=== PATIENT | female | born 1970 | race Caucasian/White ===

== ENCOUNTER 2024-05-29 15:42 | Emergency (ER) | payer BC ==
--- NOTE | 2024-05-29 16:58 | RAD REPORT ---
EXAM:Extremity Venous Uni Ltd HISTORY: TECHNIQUE: Sonographic evaluation right lower extremity performed.Grayscale, color and spectral lucina sis performed on all vessels COMPARISON: None. FINDINGS: Echogenic material consistent with acute thrombus is present within the right posterior tibial vein. The vein is noncompressible. Right common femoral, superficial femoral, greater saphenous, and popliteal veins are compressible an d demonstrate augmentation. Doppler demonstrates good flow. 4.5 x 1.8 x 3.2 cm Gotti's cyst cyst. IMPRESSION: Acute thrombus right posterior tibial vein 4.5 cm right Gotti's cyst
[2024-05-29 18:16] LABS: Absolute Basophils 0.1 K/uL (0-0.5); Absolute Eosinophils 0.3 K/uL (0-0.5); Absolute Lymphocytes (CBC) 2.2 K/uL (0.7-4.9); Absolute Monocytes 0.6 K/uL (0.1-1.3); Basophils % 1.1 % (0-1.3); Eosinophils % 3.2 % (0-4.4); Hematocrit 32.4 % (36.0-45.0); Hemoglobin 10.3 g/dL (12.0-15.0); Lymphocytes % 27.2 % (15.3-44.8); MCH 29.5 pg (27.0-35.0); MCHC 31.7 g/dL (32.0-36.0); MPV 8.5 fL (7.6-11.3); Monocytes % 7.5 % (3.3-12.3); Platelets 455 thou/uL (152-406); RBC Red Blood Cell Count 3.48 M/uL (3.86-4.86); Red Cell Distribution Width 14.7 % (12.1-15.2)
[2024-05-29 18:22] LABS: PTT, Activated Partial Thromb 29.8 SECONDS (24.3-36.9); Protime INR 1.07
[2024-05-29] MEDS ORDERED: FENTANYL CITR 100 MCG/2 ML ONE (18:34)
[2024-05-29 18:38] LABS: ALT/SGPT 16 U/L (13-56); AST/SGOT 15 U/L (15-37); Albumin 3.5 g/dL (3.4-5.0); Albumin/Globulin Ratio 0.9 (1.1-1.8); Alkaline Phosphatase 55 U/L (45-117); Anion Gap 8.4 mEq/L (5.0-15.0); BUN Blood Urea Nitrogen 28 mg/dL (7-18); Bicarbonate 24 mEq/L (21-32); Bilirubin Total 0.2 mg/dL (0.2-1.0); Globulin 3.9 g/dL (2.3-3.5); Glomerular Filtration Rate 85 ml/min (=/>90); Glucose Level 98 mg/dL (74-106); Potassium 4.4 mEq/L (3.5-5.1); Protein, Total 7.4 g/dL (6.4-8.2); Sodium Level 135 mEq/L (136-145)
[2024-05-29 18:39] LABS: Bilirubin Direct < 0.2 mg/dL (0-0.2)
--- NOTE | 2024-05-29 18:54 | EDPHYS ---
Physician Documentation [facility] Name: Melissa Benites Age: 54 yrs Sex: Female : 1970 Arrival Date: 05/29/2024 Time: 15:42 Bed 24 Private MD: ED Physician Aureliano Hammer HPI: 05/29 16:25 This 54 yrs old Female presents to ER via Wheelchair with complaints of Leg Swelling - cp right. 16:25 The patient presents with pain, that is acute, swelling, tenderness. The complaints cp affect the right lower leg. Context: the patient is able to ambulate, with moderate difficulty, Problem is a result from a previous injury: No. Onset: The symptoms/episode began/occurred 2 day(s) ago. 16:25 Associated signs and symptoms: Pertinent positives: calf tenderness, warmth, Pertinent cp negatives fever, numbness. Treatment prior to arrival includes: no previous treatment. Historical: - Allergies: 16:16 No Known Allergies; iw - PMHx: 16:16 OA treasure knee and hips; Hypothyroidism; Hypercholesterolemia; iw - PSHx: 16:16 Appendectomy; treasure knee; iw - Immunization history:: Adult Immunizations not up to date. - Infectious Disease History:: Denies. - Social history:: Smoking status: Patient denies any tobacco usage or history of. ROS: 16:30 MS/extremity: Positive for erythema, pain, swelling, tenderness, of the right lower cp leg, Negative for injury or acute deformity, paresthesias, 16:30 Constitutional: Negative for fever, cp 16:30 Respiratory: Negative for cough, shortness of breath, wheezing, 16:30 Neuro: Negative for altered mental status, headache, weakness, 16:30 All other systems are negative, Exam: 16:33 Constitutional: The patient appears in no acute distress, alert, awake, cp non-diaphoretic, non-toxic, well developed, well nourished, obese, uncomfortable, 16:33 Head/Face: Normocephalic, atraumatic. cp 16:33 Eyes: Periorbital structures: appear normal, Conjunctiva: normal, no exudate, no injection, Sclera: no appreciated abnormality, Lids and lashes: appear normal, bilaterally, 16:33 ENT: External ear(s): are unremarkable, Nose: is normal, Mouth: Lips: moist, Oral mucosa: moist, Posterior pharynx: Airway: no evidence of obstruction, patent, 16:33 Chest/axilla: Inspection: normal, 16:33 Cardiovascular: Rate: normal, Rhythm: regular, 16:33 Respiratory: the patient does not display signs of respiratory distress, Respirations: normal, no use of accessory muscles, no retractions, labored breathing, is not present, Breath sounds: are clear throughout, no decreased breath sounds, no stridor, no wheezing, 16:33 Abdomen/GI: Exam negative for discomfort, distension, guarding, Inspection: obese 16:33 Back: pain, is absent, 16:33 Musculoskeletal/extremity: Extremities: noted in the right lower leg: erythema, pain, swelling, tenderness, There is no evidence of decreased ROM, deformity, Perfusion: the extremity is normally perfused throughout, the right leg Sensation intact. 16:33 Neuro: Orientation: to person, place \T\ time. Mentation: is normal, 17:47 ECG was reviewed by the Attending Physician. Vital Signs: 16:15 BP 137 / 70; Pulse 78; Resp 19; Temp 98.3; Pulse Ox 98% on R/A; Weight 185.97 kg; iw Height 5 ft. 2 in. ; Pain 8/10; 19:00 BP 133 / 51; Pulse 78; Resp 16; Pulse Ox 100% on R/A; jb4 16:15 Body Mass Index 74.99 (185.97 kg, 157.48 cm) iw 16:15 Pain Scale: Adult iw MDM: 16:24 Patient medically screened. 18:53 Data reviewed: vital signs, nurses notes, lab test result(s), EKG, radiologic studies, cp plain films, ultrasound, and as a result, I will discharge patient. 18:53 I considered the following discharge prescriptions or medication management in the emergency department Medications were administered in the Emergency Department. See MAR. Counseling: I had a detailed discussion with the patient and/or guardian regarding the historical points, exam findings, and any diagnostic results supporting the discharge/admit diagnosis, lab results, radiology results, the need for outpatient follow up, a family practitioner, to return to the emergency department if symptoms worsen or persist or if there are any questions or concerns that arise at home. ED course: VSS. No signs of respiratory distress, pain improved with meds. Will discharge to home for continued monitoring. 05/29 16:47 Order name: Basic Metabolic Panel; Complete Time: 18:47 cp 05/29 18:48 Interpretation: Normal except: NA 135; BUN 28; GFR 85. cp 05/29 16:47 Order name: CBC with Diff; Complete Time: 18:47 cp 05/29 18:48 Interpretation: Normal except: RBC 3.48; HGB 10.3; HCT 32.4; MCHC 31.7; PLT 455. cp 05/29 16:47 Order name: LFT's; Complete Time: 18:47 cp 05/29 16:47 Order name: PT-INR; Complete Time: 18:47 cp 05/29 16:47 Order name: Ptt, Activated; Complete Time: 18:47 cp 05/29 16:12 Order name: US Extremity Venous Unilateral Ltd; Complete Time: 16:59 cp 05/29 17:00 Interpretation: Report reviewed. 05/29 16:47 Order name: EKG; Complete Time: 16:47 cp 05/29 16:47 Order name: Cardiac monitoring; Complete Time: 17:51 cp 05/29 16:47 Order name: EKG - Nurse/Tech; Complete Time: 17:51 cp 05/29 16:47 Order name: IV Saline Lock; Complete Time: 18:11 cp 05/29 16:47 Order name: Labs collected and sent; Complete Time: 18:11 cp 05/29 16:47 Order name: O2 Per Protocol; Complete Time: 17:50 cp 05/29 16:47 Order name: O2 Sat Monitoring; Complete Time: 17:50 cp EC:47 Rate is 78 beats/min. Rhythm is regular. CA interval is normal. QRS interval is normal. cp QT interval is normal. T waves are Inverted in lead aVR. Interpreted by me. Reviewed by me. Administered Medications: 18:45 Drug: fentaNYL (PF) IVP 50 mcg IVP once Route: IVP; Site: right forearm; jb4 19:34 Follow up: Response: No adverse reaction; Marked relief of symptoms jb4 19:34 Drug: Xarelto PO 20 mg PO once Route: PO; jb4 19:34 Follow up: Response: Medication administered at discharge. jb4 Disposition: 19:57 Co-signature as Attending Physician, Aureliano Hammer MD I reviewed the patient's care rn provided by the Advanced Practice Provider and agree with the diagnosis and treatment plan. Disposition Summary: 05/29/24 18:54 Discharge Ordered Notes: Location: Home cp Problem: new cp Symptoms: have improved cp Condition: Stable cp Diagnosis - Acute embolism and thrombosis of unspecified deep veins of right lower extremity cp Followup: cp - With: Private Physician - When: 1 week - Reason: Recheck today's complaints Discharge Instructions: - Discharge Summary Sheet cp - Deep Vein Thrombosis cp - Bleeding Precautions When on Anticoagulant Therapy, Adult cp Forms: - Medication Reconciliation Form cp - Antibiotic Education cp - Prescription Opioid Use cp - Patient Portal Instructions cp - Leadership Thank You Letter cp Prescriptions: - Tramadol 50 mg Oral Tablet - take 1 tablet ORAL route every 8 hours as needed; 12 tablet; Refills: 0, cp Product Selection Permitted - Xarelto 15 mg Oral tablet - take 1 tablet ORAL route 2 times per day for 21 days; 42 tablet; Refills: 0, cp Product Selection Permitted Signatures: Dispatcher [employer] Yohana Schultz RN RN iw Nieto, Roman, MD MD rn Page, Corey, PA PA cp Rudolph Sanchez RN RN jb4 Corrections: (The following items were deleted from the chart) 16:47 16:47 BASIC METABOLIC PANEL+C.LAB.BRZ ordered. EDMS EDMS 16:47 16:47 CBC+H.LAB.BRZ ordered. EDMS EDMS 16:47 16:47 HEPATIC FUNCTION+C.LAB.BRZ ordered. EDMS EDMS 16:47 16:47 PROTIME (+INR)+COAG.LAB.BRZ ordered. EDMS EDMS 16:47 16:47 PTT, ACTIVATED+COAG.LAB.BRZ ordered. EDMS EDMS
--- NOTE | 2024-05-29 18:54 | ER ---
Nurse's Notes [facility] Name: Melissa Benites Age: 54 yrs Sex: Female : 1970 Arrival Date: 05/29/2024 Time: 15:42 Bed 24 Private MD: Diagnosis: Acute embolism and thrombosis of unspecified deep veins of right lower extremity Presentation: 05/29 16:15 Chief complaint: Patient states: right leg swelling and pain started 2 days ago , no hx iw of DVT. Coronavirus screen: At this time, the client does not indicate any symptoms associated with coronavirus-19. Ebola Screen: No symptoms or risks identified at this time. Initial Sepsis Screen: Does the patient meet any 2 criteria? No. Patient's initial sepsis screen is negative. Does the patient have a suspected source of infection? No. Patient's initial sepsis screen is negative. Risk Assessment: Do you want to hurt yourself or someone else? Patient reports no desire to harm self or others. 16:15 Method Of Arrival: Wheelchair iw 16:15 Acuity: TONEY 3 iw Historical: - Allergies: 16:16 No Known Allergies; iw - PMHx: 16:16 OA treasure knee and hips; Hypothyroidism; Hypercholesterolemia; iw - PSHx: 16:16 Appendectomy; treasure knee; iw - Immunization history:: Adult Immunizations not up to date. - Infectious Disease History:: Denies. - Social history:: Smoking status: Patient denies any tobacco usage or history of. Screenin:00 [facility] ED Fall Risk Assessment (Adult) History of falling in the last 3 months, jb4 including since admission No falls in past 3 months (0 pts) Confusion or Disorientation No (0 pts) Intoxicated or Sedated No (0 pts) Impaired Gait Yes (1 pt) Mobility Assist Device Used Yes (1 pt) Altered Elimination No (0 pt) Score/Fall Risk Level 0 - 2 = Low Risk Oriented to surroundings, Maintained a safe environment. Abuse screen: Denies threats or abuse. Nutritional screening: No deficits noted. Tuberculosis screening: No symptoms or risk factors identified. Assessment: 19:34 General: Appears in no apparent distress. uncomfortable, Behavior is calm, cooperative, jb4 appropriate for age. Pain: Complains of pain in right leg Pain does not radiate. Pain currently is 10 out of 10 on a pain scale. Neuro: Level of Consciousness is awake, alert, obeys commands, Oriented to person, place, time, situation. Cardiovascular: Patient's skin is warm and dry. Respiratory: Airway is patent Respiratory effort is even, unlabored, Respiratory pattern is regular, symmetrical. GI: No signs and/or symptoms were reported involving the gastrointestinal system. : No signs and/or symptoms were reported regarding the genitourinary system. EENT: No signs and/or symptoms were reported regarding the EENT system. Derm: Skin is intact, Skin is pink, warm \T\ dry. Musculoskeletal: Circulation, motion, and sensation intact. Range of motion: intact in all extremities. Vital Signs: 16:15 BP 137 / 70; Pulse 78; Resp 19; Temp 98.3; Pulse Ox 98% on R/A; Weight 185.97 kg; iw Height 5 ft. 2 in. ; Pain 8/10; 19:00 BP 133 / 51; Pulse 78; Resp 16; Pulse Ox 100% on R/A; jb4 16:15 Body Mass Index 74.99 (185.97 kg, 157.48 cm) iw 16:15 Pain Scale: Adult iw ED Course: 15:46 Patient arrived in ED. ra3 15:51 Audi Adams PA is PHCP. cp 15:51 Aureliano Hammer MD is Attending Physician. cp 16:16 Triage completed. iw 16:17 Arm band placed on. iw 16:49 US Extremity Venous Unilateral Ltd In Process Unspecified. EDMS 18:10 Inserted saline lock: 20 gauge in right forearm, using aseptic technique. Blood jb4 collected. 18:11 PT-INR Sent. jb4 18:11 CBC with Diff Sent. jb4 18:11 LFT's Sent. jb4 18:11 Ptt, Activated Sent. jb4 19:00 Patient has correct armband on for positive identification. Bed in low position. Call jb4 light in reach. Side rails up X 1. Provided Education on: discharge instructions.. 19:00 No provider procedures requiring assistance completed. IV discontinued, intact, jb4 bleeding controlled, No redness/swelling at site. Pressure dressing applied. Administered Medications: 18:45 Drug: fentaNYL (PF) IVP 50 mcg IVP once Route: IVP; Site: right forearm; jb4 19:34 Follow up: Response: No adverse reaction; Marked relief of symptoms jb4 19:34 Drug: Xarelto PO 20 mg PO once Route: PO; jb4 19:34 Follow up: Response: Medication administered at discharge. jb4 Medication: 19:00 VIS not applicable for this client. jb4 Outcome: 18:54 Discharge ordered by . cp 19:37 Discharged to home via wheelchair, jb4 19:37 Condition: stable 19:37 Discharge instructions given to patient, Instructed on discharge instructions, follow up and referral plans. no drinking with medication, no driving heavy equipment, medication usage, Demonstrated understanding of instructions, follow-up care, medications, Prescriptions given X 2, 19:37 Patient left the ED. jb4 Signatures: Dispatcher [employer] EDMS Yohana Pina RN RN Audi Hinkle PA PA Rudolph Blakely RN RN jb4 Linda Langford ra3
[2024-05-29] MEDS ORDERED: RIVAROXABAN 20 MG TABLET PO ONE (19:25)
[2024-05-29 20:16] VITALS: TEMP 98.3
[2024-05-29 20:19] VITALS: BP 133/51; O2SAT 100
--- NOTE | 2024-05-31 13:02 | EKG ---
Test Date: 2024-05-29 Test Time: 17:39:07 Tray Line Supervisor: RAO MEASUREMENT RESULTS: Intervals: Rate: 78 OH: 152 QRSD: 92 QT: 394 QTc: 449 [place]: P: 65 OH: 152 QRS: 26 T: 61 INTERPRETIVE STATEMENTS: Normal sinus rhythm Normal ECG No previous ECG available for comparison Electronically Signed On 05-31-24 12:56:19 CDT by Yehuda Covarrubias
== END 2024-05-29 19:37 | disposition home or self-care (01) ==
LOC: ER 15:42
DX: I82.401 Acute embolism and thrombosis of unspecified deep veins of right lower extremity (principal)
CPT/HCPCS: 93005; 85025; 80048; 36415; 85610; 80076; 85730; 93971; 96374; 99284; J3010

== ENCOUNTER 2024-08-06 20:16 | Emergency (ER) | payer BC ==
--- NOTE | 2024-08-07 00:52 | RAD REPORT ---
EXAM DESCRIPTION: Chest Single View CLINICAL HISTORY: CHEST PAIN COMPARISON: None TECHNIQUE: Single AP view of the chest. FINDINGS: Lung volumes adequate. Cardiac silhouette is mildly enlarged. No pneumothorax. No large pleural effusion. Subtle patchy opacities in the right lower lobe. No acute bony finding. IMPRESSION: 1. Subtle patchy opacities in the right lower lobe, could represent atelectasis versus developing a typical infectious process. 2. Mildly enlarged cardiac silhouette. Electronically signed by: Lor Almodovar MD 08/06/2024 11:04 PM [facility] Z9 Due to temporary technical issues with the PACS/[employer] reporting system, reports are being davy d by the in-house radiologist without review as a courtesy to ensure prompt reporting the interpreting radiologist is fully responsible for the content of the report. Transcribed Date/Time: 08/07/2024 12:51 AM
[2024-08-07 02:30] LABS: Absolute Basophils 0.1 K/uL (0-0.5); Absolute Eosinophils 0.2 K/uL (0-0.5); Absolute Lymphocytes (CBC) 1.7 K/uL (0.7-4.9); Absolute Monocytes 0.5 K/uL (0.1-1.3); Absolute Neutrophil 4.5 K/uL (1.8-8.0); Basophils % 1.2 % (0-1.3); Eosinophils % 3.3 % (0-4.4); Hematocrit 13.9 % (36.0-45.0); Lymphocytes % 23.9 % (15.3-44.8); MCH 22.8 pg (27.0-35.0); MCHC 28.6 g/dL (32.0-36.0); MCV 79.8 fL (80-100); MPV 7.8 fL (7.6-11.3); Monocytes % 7.1 % (3.3-12.3); Neutrophils % 64.5 % (41.7-73.7); Nucleated RBC Absolute Count 0.5 (0-0); Nucleated Red Blood Cells % 6.8 % (0-0); Platelets 414 thou/uL (152-406); RBC Red Blood Cell Count 1.75 M/uL (3.86-4.86); Red Cell Distribution Width 22.7 % (12.1-15.2)
[2024-08-07 02:35] LABS: Anion Gap 8.4 mEq/L (5.0-15.0); Potassium 5.4 mEq/L (3.5-5.1); Troponin High Sensitivity 7.9 pg/mL (<58.9)
[2024-08-07 04:26] LABS: Anisocytosis 2+; Blood Morphology Comment NOTED (NOT SEEN); Hypochromasia 2+; Microcytosis 1+; Platelet Estimate ADEQ; Polychromasia 1+; White Blood Cell Scan OK (OK)
--- NOTE | 2024-08-07 05:04 | ER ---
Nurse's Notes [facility] Name: Melissa Benites Age: 54 yrs Sex: Female : 1970 Arrival Date: 08/06/2024 Time: 20:16 Bed 7 Private MD: Diagnosis: Anemia, unspecified;Melena Presentation: 08/06 21:04 Chief complaint: EMS states: SOB x2 weeks, chest pain starting today that radiates to tm6 left shoulder. Right now no CP. Since being in ER, has experienced some dizziness. Coronavirus screen: Client denies travel out of the [place] in the last 14 days. Ebola Screen: Patient negative for fever greater than or equal to 101.5 degrees Fahrenheit, and additional compatible Ebola Virus Disease symptoms Patient denies exposure to infectious person. Patient denies travel to an Ebola-affected area in the 21 days before illness onset. No symptoms or risks identified at this time. Initial Sepsis Screen: Does the patient meet any 2 criteria? No. Patient's initial sepsis screen is negative. Does the patient have a suspected source of infection? No. Patient's initial sepsis screen is negative. Risk Assessment: Do you want to hurt yourself or someone else? Patient reports no desire to harm self or others. Onset of symptoms was August 06, 2024 at 18:00. 21:04 Method Of Arrival: EMS: [facility] tm6 21:04 Acuity: TONEY 3 tm6 Triage Assessment: 21:06 General: Appears in no apparent distress. Behavior is calm, cooperative. Pain: Denies tm6 pain. Complains of pain in chest and left arm Pain currently is 0 out of 10 on a pain scale. EENT: No signs and/or symptoms were reported regarding the EENT system. Neuro: Level of Consciousness is awake, alert, obeys commands, Oriented to person, place, time, situation, Reports dizziness. Cardiovascular: Reports chest pain, shortness of breath, Patient's skin is warm and dry. Rhythm is sinus rhythm. Respiratory: Airway is patent Respiratory effort is even, unlabored, Respiratory pattern is regular, symmetrical. GI: Abdomen is obese. : No signs and/or symptoms were reported regarding the genitourinary system. Derm: No signs and/or symptoms reported regarding the dermatologic system. Musculoskeletal: No signs and/or symptoms reported regarding the musculoskeletal system. DIRECTOR [employer] SCIENCES: 08/07 06:47 LMP N/A - Post-menopause, Not vc1 Historical: - Allergies: 08/06 21:06 No Known Allergies; tm6 - PMHx: 21:06 Hypercholesterolemia; Hypothyroidism; OA clarence knee and hips; tm6 - PSHx: 21:06 Appendectomy; CLARENCE knee; tm6 - Immunization history:: Flu vaccine is not up to date. - Infectious Disease History:: Denies. - Social history:: Smoking status: Patient denies any tobacco usage or history of. Screenin:33 [facility] ED Fall Risk Assessment (Adult) History of falling in the last 3 months, me1 including since admission No falls in past 3 months (0 pts) Confusion or Disorientation No (0 pts) Intoxicated or Sedated No (0 pts) Impaired Gait No (0 pts) Mobility Assist Device Used No (0 pt) Altered Elimination No (0 pt) Score/Fall Risk Level 0 - 2 = Low Risk Maintained a safe environment, Provided non-skid footwear, Hourly rounding (assess needs \T\ fall precautionary measures) done. Abuse screen: Denies threats or abuse. Nutritional screening: No deficits noted. Tuberculosis screening: No symptoms or risk factors identified. Assessment: 23:33 General: Appears comfortable, obese, well developed, Behavior is calm, cooperative, me1 appropriate for age, Reports SOB x2 weeks, chest pain starting today that radiates to left shoulder. Right now no CP. Since being in ER, has experienced some dizziness. Pain: Complains of pain in chest Pain radiates to left arm Pain currently is 5 out of 10 on a pain scale. Quality of pain is described as heavy, Pain began suddenly, Is continuous. Neuro: Level of Consciousness is awake, alert, obeys commands, Oriented to person, place, time, situation, Appropriate for age. Neuro: Reports dizziness. Cardiovascular: Patient's skin is warm and dry. Respiratory: Airway is patent Respiratory effort is even, unlabored, Respiratory pattern is regular, symmetrical. Respiratory: Reports shortness of breath since 2 weeks ago. GI: No signs and/or symptoms were reported involving the gastrointestinal system. : No signs and/or symptoms were reported regarding the genitourinary system. EENT: No signs and/or symptoms were reported regarding the EENT system. Derm: Skin is intact, is healthy with good turgor, Skin is pink, warm \T\ dry. Musculoskeletal: No signs and/or symptoms reported regarding the musculoskeletal system. 08/07 07:00 Reassessment: No changes from previously documented assessment. Patient and/or family ll1 updated on plan of care and expected duration. Pain level reassessed. 1st unit of blood transfusing. 07:05 General: Appears comfortable, obese, Behavior is calm, cooperative, appropriate for ll1 age. Pain: Denies pain. Cardiovascular: Reports shortness of breath. Respiratory: Reports shortness of breath on exertion since 2 weeks labored breathing. Vital Signs: 08/06 21:04 BP 114 / 51; Pulse 73; Resp 19; Temp 97.9(O); Pulse Ox 100% on R/A; MAP 66 mmHg; Weight tm6 181.44 kg; Height 5 ft. 2 in. ; Pain 0/10; 23:30 BP 102 / 47; Pulse 70; Resp 20; Pulse Ox 96% on R/A; me1 08/07 05:00 BP 145 / 49; Pulse 77; Resp 16; Pulse Ox 100% ; vc1 06:47 BP 140 / 50; Pulse 69; Resp 16; Temp 96; Pulse Ox 100% ; vc1 07:05 BP 133 / 54; Pulse 73; Resp 17; Temp 96; Pulse Ox 100% ; Pain 0/10; ll1 08:05 BP 155 / 76; Pulse 65; Resp 17; Temp 96.1; Pulse Ox 100% ; Pain 0/10; ll1 08:35 BP 151 / 71; Pulse 64; Resp 18; Temp 96.1; Pulse Ox 100% ; Pain 0/10; ll1 08/06 21:04 Body Mass Index 73.16 (181.44 kg, 157.48 cm) tm6 08/06 21:04 Pain Scale: Adult tm6 07:05 Pain Scale: Adult ll1 08:05 Pain Scale: Adult ll1 08:35 Pain Scale: Adult ll1 ED Course: 08/06 20:20 Patient arrived in ED. jj6 20:48 EKG done, by ED staff. tm6 21:06 Triage completed. tm6 21:06 Arm band placed on right wrist. tm6 22:09 Sony Ph[facility] F[facility]C [facility]. dr5 22:09 Gerardo Hardin MD is Attending Physician. dr5 22:36 Santana Johnson, RN is Primary Nurse. bm8 22:41 XRAY Chest (1 view) In Process Unspecified. EDMS 23:33 Patient has correct armband on for positive identification. Call light in reach. In me1 wheelchair, locked. Provided Education on: POC. Verbalized understanding.. Client placed on continuous cardiac and pulse oximetry monitoring. NIBP monitoring applied. monitor technician on. Pulse ox on. NIBP on. 23:33 No provider procedures requiring assistance completed. Patient maintains SpO2 me1 saturation greater than 95% on room air. 12 02:05 Basic Metabolic Panel Sent. vk 02:05 CBC with Diff Sent. vk 02:05 NT PRO-BNP Sent. vk 02:05 Troponin HS Sent. vk 02:05 Initial lab(s) drawn, by me, sent to lab. Inserted saline lock: 20 gauge in right vk antecubital area, using aseptic technique. Blood collected. Flushed with 10 mL NS. 03:56 Inserted saline lock: 22 gauge in right forearm, using aseptic technique. Blood vc1 collected. Flushed with 10 mL NS. 06:36 Gerardo Hardin MD is Attending Physician. ec2 07:00 Report received from pharmaceutical service representative RN. ll1 08:10 Patient transferred, IV remains in place. ll1 Administered Medications: 06:30 Drug: Pantoprazole IVP 80 mg IVP once Route: IVP; Site: right forearm; vc1 08:10 Follow up: Response: No adverse reaction ll1 06:46 Drug: Pantoprazole IV 8 mg/hr IV at 25 ml/hr continuous; (Standard dilution is 80 mg in vc1 250 mL NS) Route: IV; Rate: 25 ml/hr; Site: left antecubital; 08:10 Follow up: Response: No adverse reaction; IV Status: Infusion continued upon transfer; ll1 IV Intake: 16ml Medication: 08/06 23:33 VIS not applicable for this client. me1 Intake: 08/07 08:10 IV: 16ml; Total: 16ml. ll1 Outcome: 05:03 ER care complete, transfer ordered by . ec2 08:09 Transferred by ground EMS to [facility], Transfer form ll1 completed. 08:09 Condition: stable 08:09 Instructed on the need for transfer, 08:47 Patient left the ED. ll1 Signatures: Dispatcher [employer] EDLouie Mai, RN RN ll1 Sdaie Ashford jj6 Anjali Turner RN RN vc1 Kera Newman RN RN me1 Gerardo Hardin MD MD ec2 Rey Renee RN RN tm6 Kelli Montelongo Brad, RN RN bm8 Sony Phan, SENIOR SOFTWARE ENGINEERING MANAGER-C SENIOR SOFTWARE ENGINEERING MANAGER-[id number] Corrections: (The following items were deleted from the chart) 08/06 23:33 21:04 Chief complaint: EMS states: SOB x2 weeks, chest pain starting today that me1 radiates to left shoulder. Right now no CP. Since being in ER, has experienced some dizziness. tm6 08/07 08:09 08:05 BP 133 / 54; Pulse 73bpm; Resp 17bpm; Pulse Ox 100%; Temp 96F; Pain 0/10, Adult; ll1 ll1
--- NOTE | 2024-08-07 05:05 | EDPHYS ---
Physician Documentation [facility] Name: Melissa Benites Age: 54 yrs Sex: Female : 1970 Arrival Date: 08/06/2024 Time: 20:16 Bed 7 Private MD: ED Physician Gerardo Hardin HPI: 08/06 22:09 This 54 yrs old Female presents to ER via EMS with complaints of Chest Pain. dr5 22:09 Onset: The symptoms/episode began/occurred 3 week(s) ago. 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 Pt also reports chest pain that started around 6:30pm while at rest. EMS gave patient 324 ASA prior to arrival.. 22:11 Pt has hx of COPD, Asthma, Hyperlipidemia, Hypothyroidism. 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 - Infectious Disease History:: Denies. - Social history:: Smoking status: Patient denies any tobacco usage or history of. ROS: 08/07 05:04 Constitutional: as per hpi ec2 Exam: 05:04 Constitutional: GEN: NAD Head: atraumatic Eyes: EOMI Ears: External ears are ec2 normal. CV: regular rate LUNGS: no respiratory distress ABD: non-distended, significantly morbidly obese SKIN: no evidence of rashes MSK: no evidence of trauma Vital Signs: 08/06 21:04 BP 114 / 51; Pulse 73; Resp 19; Temp 97.9(O); Pulse Ox 100% on R/A; MAP 66 mmHg; Weight tm6 181.44 kg; Height 5 ft. 2 in. ; Pain 0/10; 23:30 BP 102 / 47; Pulse 70; Resp 20; Pulse Ox 96% on R/A; me1 08/07 05:00 BP 145 / 49; Pulse 77; Resp 16; Pulse Ox 100% ; vc1 06:47 BP 140 / 50; Pulse 69; Resp 16; Temp 96; Pulse Ox 100% ; vc1 07:05 BP 133 / 54; Pulse 73; Resp 17; Temp 96; Pulse Ox 100% ; Pain 0/10; ll1 08:05 BP 155 / 76; Pulse 65; Resp 17; Temp 96.1; Pulse Ox 100% ; Pain 0/10; ll1 08:35 BP 151 / 71; Pulse 64; Resp 18; Temp 96.1; Pulse Ox 100% ; Pain 0/10; ll1 08/06 21:04 Body Mass Index 73.16 (181.44 kg, 157.48 cm) tm6 08/06 21:04 Pain Scale: Adult tm6 07:05 Pain Scale: Adult ll1 08:05 Pain Scale: Adult ll1 08:35 Pain Scale: Adult ll1 MDM: 08/06 22:16 Medical Screening Exam initiated dr5 08/07 05:04 Data reviewed: vital signs, nurses notes. ED course: Patient arrives today for weakness ec2 and shortness of breath. Examination shows melena on rectal examination performed under supervision, Anjali Dillon. Patient is profoundly anemic with a hemoglobin of 4. Will transfer for GI capable facility.. 05:27 ED course: Discussed case w/ Dr. Garcia at [facility] who agrees to accept pt for transfer. ec2 08/07 02:44 Order name: ABO/RH typing EDFL 08/07 02:44 Order name: Antibody Screen EDFL 08/06 22:12 Order name: Basic Metabolic Panel; Complete Time: 02:41 dr5 08/06 22:12 Order name: CBC with Diff; Complete Time: 04:52 [facility] 08/06 22:12 Order name: NT PRO-BNP; Complete Time: 02:41 dr5 08/06 22:12 Order name: Troponin HS; Complete Time: 02:41 dr5 08/07 02:42 Order name: Packed Rbc Leukored ec2 08/07 02:43 Order name: CBC Smear Scan; Complete Time: 04:52 EDFL 08/07 05:12 Order name: ABO/RH no charge; Complete Time: 05:24 EDFL 08/06 22:12 Order name: XRAY Chest (1 view) dr5 08/06 22:12 Order name: Cardiac monitoring; Complete Time: 02:05 dr5 08/06 22:12 Order name: EKG - Nurse/Tech; Complete Time: 23:00 dr5 08/06 22:12 Order name: IV Saline Lock; Complete Time: 23:01 dr5 08/06 22:12 Order name: Labs collected and sent; Complete Time: 02:05 dr5 08/06 22:12 Order name: O2 Per Protocol; Complete Time: 23:01 dr5 08/06 22:12 Order name: O2 Sat Monitoring; Complete Time: 23:01 dr5 08/07 02:42 Order name: Consent for Blood Transfusion; Complete Time: 06:47 ec2 08/07 02:42 Order name: IV Saline Lock; Complete Time: 05:22 ec2 Administered Medications: 06:30 Drug: Pantoprazole IVP 80 mg IVP once Route: IVP; Site: right forearm; vc1 08:10 Follow up: Response: No adverse reaction ll1 06:46 Drug: Pantoprazole IV 8 mg/hr IV at 25 ml/hr continuous; (Standard dilution is 80 mg in vc1 250 mL NS) Route: IV; Rate: 25 ml/hr; Site: left antecubital; 08:10 Follow up: Response: No adverse reaction; IV Status: Infusion continued upon transfer; ll1 IV Intake: 16ml Disposition: 05:04 I reviewed the patient's care provided by Advanced Practice Provider \T\ agree w/ the ec2 diagnosis \T\ care plan. I personally saw the pt \T\ performed a substantive portion of the visit, incldng all aspects of the (History/Exam/Medical Decision Making). 05:05 Critical Care:. ec2 Disposition Summary: 08/07/24 05:03 Transfer Ordered Notes: Reason: Higher level of care ec2 Condition: Stable ec2 Problem: new ec2 Symptoms: are unchanged ec2 [facility] rv1 Accepting Physician: transferring doc(08/07/24 08:47) ll1 Diagnosis - Anemia, unspecified ec2 - Melena ec2 Forms: - Medication Reconciliation Form ec2 - SBAR form ec2 Critical care time excluding procedures: 05:05 Critical care time: Bedside Care: 30 minutes, Consultation: 5 minutes. Total time: 35 ec2 minutes Signatures: Dispatcher [employer] EDLouie Mai RN RN ll1 Anjali Turner RN RN vc1 Stefanie Cleary rv1 Gerardo Hardin MD MD ec2 Rey Renee RN RN tm6 Sony Phan, ROLLER MAKER-C ROLLER MAKER-Cdr5 Corrections: (The following items were deleted from the chart) 08/06 22:12 22:12 BASIC METABOLIC PANEL+C.LAB.BRZ ordered. EDMS EDMS 22:12 22:12 CBC+H.LAB.BRZ ordered. EDMS EDMS 22:12 22:12 PROBNP+C.LAB.BRZ ordered. EDMS EDMS 22:12 22:12 Troponin High Sensitivity+C.LAB.BRZ ordered. EDMS EDMS 22:12 22:12 Chest Single View+RAD.RAD.BRZ ordered. EDMS EDMS 08/07 03:46 02:42 TYPE AND SCREEN+BB.LAB.BRZ ordered. EDMS EDMS 05:17 05:03 transferring doc ec2 rv1 05:17 05:03 [facility] ec2 rv1 08:47 05:17 transferring doc rv1 ll1
[2024-08-07] MEDS ORDERED: PANTOPRAZOLE 40 MG INJ ONE (06:10)
[2024-08-07] MEDS ORDERED: NA CHLORIDE 0.9% 500 ML ONE (06:11)
[2024-08-07 11:58] VITALS: O2SAT 100
[2024-08-07 12:02] VITALS: TEMP 96.1
[2024-08-07 12:03] VITALS: BP 151/71
--- NOTE | 2024-08-11 16:05 | EKG ---
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
== END 2024-08-07 08:47 | disposition short-term general hospital (02) ==
LOC: ER 20:16
PROC: 30233N1 Transfusion of Nonautologous Red Blood Cells into Peripheral Vein, Percutaneous Approach (ICD-10-PCS; principal; 2024-08-07)
DX: D64.9 Anemia, unspecified (principal); K92.1 Melena; R07.9 Chest pain, unspecified
CPT/HCPCS: 96365; 93005; 85025; 80048; 36415; 86900; 86850; 86901; 86920 ×3; 84484; 83880; 71045; 99285; 36430; J2470; P9016; J7050